=== PATIENT | female | born 1970 | race Caucasian/White ===

== ENCOUNTER 2021-07-03 23:19 | Emergency (ER) | payer MEDICAID ==
[~2021-07-03] VITALS: Ht 152.4 cm; Wt 81.0 kg
[2021-07-04] MEDS ORDERED: DEXT15DR5 RIGHTEYE (02:48)
[2021-07-04] MEDS ORDERED: PRED10TA MT (02:48)
[2021-07-04] MEDS ORDERED: ACYC200C MT (02:48)
[2021-07-04 03:10] VITALS: BP 152/68
== END 2021-07-04 03:09 | disposition home or self-care (01) ==
LOC: ER 23:19
DX: G51.0 Bell's palsy (principal); Z79.899 Other long term (current) drug therapy
CPT/HCPCS: 93005; 99291